=== PATIENT | female | born 1965 | race Caucasian/White ===

== ENCOUNTER → 2019-12-23 | Outpatient (CLI) | payer BC | END | disposition home or self-care (01) | LOC: LABWHC1 13:19 | PROVIDERS: ATTEND Emergency Medicine | DX: Z20.828 Contact with and (suspected) exposure to other viral communicable diseases (principal) | CPT/HCPCS: U0003; C9803 ==

== ENCOUNTER 2021-08-31 21:19 | Emergency (ER) | payer BC, OTHER ==
--- NOTE | 2021-08-31 22:59 | XR ---
EXAMINATION TYPE: XR chest 2V DATE OF EXAM: 08/31/2021 COMPARISON: 10/17/2016 HISTORY: Cough TECHNIQUE: FINDINGS: Heart and mediastinum are normal. Lungs are clear. There is normal. Bony thorax is intact. IMPRESSION: Normal chest. No change.
--- NOTE | 2021-09-01 00:10 | ED ---
Fever HPI - General Chief Complaint: Fever Stated Complaint: Fever,NORRIS Time Seen by Provider: 09/01/21 00:03 Source: patient Mode of arrival: ambulatory Limitations: no limitations - History of Present Illness Initial Comments: This is a pleasant 56-year-old female who is a daily cigarette smoker. Also has a history of hypertension, acid reflux, and osteoarthritis. It having a cough about 5 days ago. About 3 days ago she started having a fever and body aches. Patient denying any shortness of breath. No vomiting. Patient eating and dr inking normally. Normal amounts of urination. No abdominal pain. MILD headache and subjective fever., no changes in vision or hearing, no sore throat or difficulty with speech, no neck pain, no chest pain or shortness of breath, no abdominal pain, no nausea or vomiting, no changes in urination or bowel movements, no numbness or tingling, no extremity pain, no skin rashes or lesions. - Related Data Home Medications Medication Instructions Recorded Confirmed Albuterol Inhaler (Mhu) [Ventolin 1 - 2 puff INHALATION RT-Q6H PRN 08/30/16 10/03/17 Hfa Inhaler] Cholecalciferol [Vitamin D3] 5,000 unit PO DAILY 08/30/16 10/03/17 Escitalopram [Lexapro] 20 mg PO DAILY 08/30/16 10/03/17 Losartan [Cozaar] 50 mg PO DAILY 08/30/16 10/03/17 Multivitamins, Thera [Multivitamin 1 tab PO DAILY 08/30/16 10/03/17 (formulary)] Docusate [Colace] 100 mg PO DAILY 09/18/17 10/03/17 Ferrous Sulfate [Feosol] 325 mg PO MOWEFR 09/18/17 10/03/17 Previous Rx's Medication Instructions Recorded Docusate [Colace] 100 mg PO DAILY #10 capsule 10/03/17 HYDROcodone/APAP 5-325MG [[place] 1 tab PO Q6HR PRN 3 Days #12 tab 10/03/17 5-325] Allergies Allergy/AdvReac Type Severity Reaction Status Date / Time No Known Allergies Allergy Verified 08/31/21 22:34 Review of Systems ROS Statement: Those systems with pertinent positive or pertinent negative responses have been documented in the HPI. ROS Other: All systems not noted in ROS Statement are negative. Past Medical History Past Medical History: GERD/Reflux, Hypertension, Osteoarthritis (OA) Additional Past Medical History / Comment(s): gallstones History of Any Multi-Drug Resistant Organisms: None Reported Past Surgical History: Appendectomy, Breast Surgery Additional Past Surgical History / Comment(s): laparoscopy, rt breast biopsy Past Anesthesia/Blood Transfusion Reactions: Previous Problems w/ Anesthesia Additional Past Anesthesia/Blood Transfusion Reaction / Comment(s): during anesthesia low b/p, slow to wake up Past Psychological History: Anxiety, Depression Smoking Status: Current every day smoker Past Alcohol Use History: None Reported Past Drug Use History: None Reported - Past Family History Brother(s) Family Medical History: Deep Vein Thrombosis (DVT) Sister(s) Family Medical History: Cancer Additional Family Medical History / Comment(s): skin cancer General Exam - General Exam Comments Initial Comments: Obese 56-year-old female in no significant distress. Appears to be adequately hydrated. No respiratory distress. Appears to be minimally ill but not toxic. Adequate skin color. No mottling. Capillary refill less than 2 seconds. Limitations: no limitations General appearance: alert, in no apparent distress Head exam: Present: atraumatic, normocephalic, normal inspection Eye exam: Present: normal appearance, PERRL, EOMI. Absent: scleral icterus, conjunctival injection, periorbital swelling ENT exam: Present: normal exam, normal oropharynx, mucous membranes moist, TM's normal bilaterally, normal external ear exam, other (Airway is patent). Absent: mucous membranes dry Neck exam: Present: normal inspection, full ROM. Absent: tenderness, meningismus, lymphadenopathy Respiratory exam: Present: normal lung sounds bilaterally. Absent: respiratory distress, wheezes, rales, rhonchi, stridor Cardiovascular Exam: Present: regular rate, normal rhythm, normal heart sounds. Absent: systolic murmur, diastolic murmur, rubs, gallop, clicks GI/Abdominal exam: Present: soft, normal bowel sounds. Absent: distended, tenderness, guarding, rebound, rigid Extremities exam: Present: normal inspection, full ROM, normal capillary refill. Absent: tenderness, pedal edema, joint swelling, calf tenderness Back exam: Present: normal inspection Neurological exam: Present: alert, oriented X3, CN II-XII intact, normal gait Psychiatric exam: Present: normal affect, normal mood. Absent: anxious, flat affect Skin exam: Present: warm, dry, intact, normal color. Absent: rash, cyanosis, diaphoretic, erythema, urticaria, vesicles, petechiae, pallor, mottled, abrasion Course Vital Signs 08/31/21 22:31 Temperature 99.9 F H Pulse Rate 99 Respiratory 18 Rate Blood Pressure 147/73 O2 Sat by Pulse 95 Oximetry Medical Decision Making - Medical Decision Making Patient in no distress at discharge. Patient is outside the 48-hour window for Tamiflu. Patient positive for influenza A. Discussed conservative therapy to include antipyretics and hydration. All questions answered. Patient was told to return to the ER for any signs or symptoms worsen. Told to return immediately if any other problems arise. All questions answered. Treatment plan discussed. Patient in agreement Every effort has been made to ensure accuracy of this dictation. However, due to the limitations of electronic medical records and dictation devices, errors in charting still occur. Supervising physician is Dr. De Paz - Lab Data Lab Results 08/31/21 08/31/21 Range/Units 22:40 22:40 Coronavirus (PCR) Not Detected (Not Detectd) Influenza Type A RNA Detected H (Not Detectd) Influenza Type B (PCR) Not Detected (Not Detectd) - Radiology Data Radiology results: report reviewed, image reviewed Disposition Clinical Impression: Influenza A, Cigarette smoker Disposition: HOME SELF-CARE Condition: Stable Instructions (If sedation given, give patient instructions): How to Stop Smoking (ED), Fever in Adults (ED), Influenza (ED) Additional Instructions: Alternate acetaminophen and ibuprofen for fever control. Drink plenty of clear liquids. Follow-up with your regular physician as directed. Return to the ER immediately if any symptoms worsen, new symptoms arise, or any other problems develop. Is patient prescribed a controlled substance at d/c from ED?: No Referrals: Rolanda Huertas [Primary Care Provider] - 09/07/21 Time of Disposition: 00:10
[2021-09-01 00:27] VITALS: BP 127/78; PULSE 92; RESP 18; TEMP 98.9
== END 2021-09-01 00:25 | disposition home or self-care (01) ==
LOC: EC 21:19
DX: J10.1 Influenza due to other identified influenza virus with other respiratory manifestations (principal); F17.210 Nicotine dependence, cigarettes, uncomplicated; I10 Essential (primary) hypertension; Z20.822 Contact with and (suspected) exposure to COVID-19; Z79.899 Other long term (current) drug therapy
CPT/HCPCS: 71046; 87502; 87635; 99283

== ENCOUNTER → 2021-10-17 | Outpatient (CLI) | payer BC, OTHER ==
--- NOTE | 2021-10-17 15:30 | P.CNPUL ---
History of Present Illness Consult date: 10/17/21 Chief complaint: Hypersomnia History of present illness: This is a 56-year-old female patient was referred to me for sleep apnea evaluation. 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 She is working between 7 PM and 7 AM. She is typically home by 8:00 and she goes to bed at around 9 AM and she wakes up for 30 p.m. in the afternoon. She is snoring excessively and she's been told by several family members. She is excessively fatigued and non-refreshed and sleepy after she wakes up in the afternoon. She falls asleep easily. His sleep is restless and she moves and tosses and turns constantly and she feels that she is constantly moving her legs and she flips and flops all over her back. She has gained significant amount of weight over the years and she is up and her weight by around 15 pounds over the past 1 year. She drinks approximately 3 cups of coffee while on the job. She does not take any naps while on the job. However, she can take on and off naps during the day. No history of any motor vehicle accident because of feeling drowsy or sleepy. She has no sleep paralysis, hallucinations or cataplexy. She has a positive family history for sleep apnea as the patient's sister has been diagnosed having JOSE EDUARDO and the patient's sister has a CPAP unit. The patient's current [place] score is at 19. No nighttime chest pain or shortness of breath. No nighttime heartburn. She is missing her upper teeth. No facial deformity. She is a nosebleed appeared she wakes up with a dry mouth. She prefers to sleep on her side. Past medical history is positive for depression, hypertension, acid reflux, obesity, and diabetes mellitus Past surgical history includes breast biopsies, laparoscopic abdominal surgery, appendectomy, cholecystectomy, surgery on her left hand involving the left hand knuckle and carpal tunnel release in the left hand. Social history the patient is a nonsmoker. No tobacco rhythm. No sensory substance abuse. Family history is positive for hypertension, heart disease, hyperlipidemia and as mentioned earlier sister has obstructive sleep apnea. Diabetes runs in her family also addition to acid reflux. Review of Systems Constitutional: Reports daytime sleepiness, Reports fatigue, Reports weight gain Eyes: denies as per HPI, denies blurred vision, denies bulging eye, denies decreased vision, denies diplopia, denies discharge, denies dry eye, denies irritation, denies itching, denies pain, denies photophobia, denies loss of peripheral vision, denies loss of vision, denies tunnel vision/blind spots Ears: deny: decreased hearing, ear discharge, earache, tinnitus Ears, nose, mouth and throat: Reports as per HPI Breasts: absent: as per HPI, change in shape, gynecomastia, masses, nipple discharge, pain, skin changes, swelling Respiratory: Reports sleep apnea, Reports snoring Gastrointestinal: Reports as per HPI Genitourinary: Reports as per HPI Menstruation: Reports as per HPI Musculoskeletal: Reports as per HPI Musculoskeletal: absent: ankle pain, ankle stiffness, ankle swelling Integumentary: Reports as per HPI Neurological: Reports as per HPI Psychiatric: Reports as per HPI, Reports sleep disturbances Endocrine: Reports as per HPI, Reports fatigue Hematologic/Lymphatic: Reports as per HPI Allergic/Immunologic: Reports as per HPI Past Medical History Past Medical History: GERD/Reflux, Hypertension, Osteoarthritis (OA) Additional Past Medical History / Comment(s): gallstones History of Any Multi-Drug Resistant Organisms: None Reported Past Surgical History: Appendectomy, Breast Surgery Additional Past Surgical History / Comment(s): laparoscopy, rt breast biopsy Past Anesthesia/Blood Transfusion Reactions: Previous Problems w/ Anesthesia Additional Past Anesthesia/Blood Transfusion Reaction / Comment(s): during anesthesia low b/p, slow to wake up Past Psychological History: Anxiety, Depression Smoking Status: Current every day smoker Past Alcohol Use History: None Reported Past Drug Use History: None Reported - Past Family History Brother(s) Family Medical History: Deep Vein Thrombosis (DVT) Sister(s) Family Medical History: Cancer Additional Family Medical History / Comment(s): skin cancer Medications and Allergies Home Medications and Allergies Comment(s): Lexapro 20 mg by mouth daily Home Medications Medication Instructions Recorded Confirmed Type Albuterol Inhaler [Ventolin Hfa 1 - 2 puff INHALATION RT-Q6H PRN 08/30/16 10/03/17 History Inhaler] Cholecalciferol [Vitamin D3] 5,000 unit PO DAILY 08/30/16 10/03/17 History Escitalopram [Lexapro] 20 mg PO DAILY 08/30/16 10/03/17 History Losartan [Cozaar] 50 mg PO DAILY 08/30/16 10/03/17 History Multivitamins, Thera [Multivitamin 1 tab PO DAILY 08/30/16 10/03/17 History (formulary)] Docusate [Colace] 100 mg PO DAILY 09/18/17 10/03/17 History Ferrous Sulfate [Feosol] 325 mg PO MOWEFR 09/18/17 10/03/17 History Docusate [Colace] 100 mg PO DAILY #10 capsule 10/03/17 Rx HYDROcodone/APAP 5-325MG [[place] 1 tab PO Q6HR PRN 3 Days #12 tab 10/03/17 Rx 5-325] Allergies Allergy/AdvReac Type Severity Reaction Status Date / Time No Known Allergies Allergy Verified 08/31/21 22:34 Physical Exam BP is 135/83, pulse is 90, respirations 20, temperature is 97.5, and saturation 96% on room air. Height is 5 feet and 1 inch, weight 228 pounds, patient's [place] Evans scores of 19, neck is16 inches and the patient has a body mass index of 42.3. The patient appeared well nourished and normally developed. Vital signs as documented. Head exam is unremarkable. No scleral icterus or corneal arcus noted. Neck is without jugular venous distension, thyromegaly, or carotid bruits. The patient has a Mallampati class IV. She has missing upper teeth. No overbite. No nasal deformity. Carotid upstrokes are brisk bilaterally. Lungs are clear to auscultation and percussion. Cardiac exam reveals the PMI to be normally sized and situated. Rhythm is regular. First and second heart sounds normal. No murmurs, rubs or gallops. Abdominal exam reveals normal bowel sounds, no masses, no organomegaly and no aortic enlargement. Extremities are nonedematous and both femoral and pedal pulses are normal.Examination of the skin revealed no evidence of significant rashes, suspicious appearing nevi or other concerning lesions.Neurologically, the patient is awake and alert and the patient does not have any focal neurological deficit. Cranial nerves are essentially intact. Assessment and Plan Plan: Chronic hypersomnia under investigation. The [place] score at 19. 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 We'll ask the patient to proceed with a screening polysomnogram to rule out the possibility of an underlying sleep breathing disorder. Also rule out the possibility of periodic limb movement activity/RLS syndrome contributing to sleep fragmentation. Encourage weight loss we'll treat comorbidities through the primary care physician We'll contact the patient back with the results of the sleep study and make further decisions accordingly. Note that the patient denies she is worker and this will be a morning study.
== END ==
LOC: SLEEP 13:48
PROVIDERS: ATTEND Internal Medicine Critical Care Medicine
DX: G47.10 Hypersomnia, unspecified (principal); E66.9 Obesity, unspecified; Z68.41 Body mass index [BMI] 40.0-44.9, adult; R06.83 Snoring; I10 Essential (primary) hypertension; F32.A Depression, unspecified; K21.9 Gastro-esophageal reflux disease without esophagitis; E11.9 Type 2 diabetes mellitus without complications; M19.90 Unspecified osteoarthritis, unspecified site; F17.200 Nicotine dependence, unspecified, uncomplicated; Z79.899 Other long term (current) drug therapy
CPT/HCPCS: 99211

== ENCOUNTER 2022-02-27 17:45 | Emergency (ER) | payer BC, OTHER ==
[2022-02-27 18:23] VITALS: BP 147/91; TEMP 98.5
--- NOTE | 2022-02-27 19:11 | XR ---
EXAMINATION TYPE: XR chest 2V DATE OF EXAM: 02/27/2022 6:42 PM COMPARISON: Chest radiographs from 08/31/2021 TECHNIQUE: XR chest 2V Frontal and lateral views of the chest. CLINICAL INDICATION:Female, 56 years old with history of cough; FINDINGS: Lungs/Pleura: There is no evidence of pleural effusion, focal consolidation, or pneumothorax. Pulmonary vascularity: Unremarkable. Heart/mediastinum: Cardiomediastinal silhouette is unremarkable. Musculoskeletal: No acute osseous pathology. IMPRESSION: No acute cardiopulmonary disease/process. No change from prior on 08/31/2021.
[2022-02-27] MEDS ORDERED: IPRATROPIUM-ALBUTEROL 3 ML NEB INHALATION STA (19:45)
[2022-02-27] MEDS ORDERED: methylPREDNISolone SOD SUCCI 125 MG/2 ML VIAL IM ONE (19:46)
--- NOTE | 2022-02-27 19:49 | ED ---
General Adult HPI - General Chief complaint: Shortness of Breath Stated complaint: SOB Time Seen by Provider: 02/27/22 19:40 Source: patient, RN notes reviewed, old records reviewed Mode of arrival: ambulatory Limitations: no limitations - History of Present Illness Initial comments: This is a 56-year-old female with past medical history significant for smoking. Patient states she continues to smoke. Patient did receive the COVID vaccine however she was diagnosed with colon on February 17 she was on Paxlovid but she stopped it because he was given or diarrhea. Patient states she continues to smoke have some shortness of breath. Patient saw her family doctor yesterday and was prescribed albuterol and prednisone. Patient states she's been unable to take the albuterol because she does not a work inhaler. Patient states shortness of breath and cough continues and she came to the emergency department. This problem is the dry cough. Patient denies any chest pain denies any palpitation. Patient denies any fever chills. Patient denies any abdominal pain. - Related Data Home Medications Medication Instructions Recorded Confirmed Albuterol Inhaler [Ventolin Hfa 1 - 2 puff INHALATION RT-Q6H PRN 08/30/16 10/03/17 Inhaler] Cholecalciferol [Vitamin D3] 5,000 unit PO DAILY 08/30/16 10/03/17 Escitalopram [Lexapro] 20 mg PO DAILY 08/30/16 10/03/17 Losartan [Cozaar] 50 mg PO DAILY 08/30/16 10/03/17 Multivitamins, Thera [Multivitamin 1 tab PO DAILY 08/30/16 10/03/17 (formulary)] Docusate [Colace] 100 mg PO DAILY 09/18/17 10/03/17 Ferrous Sulfate [Feosol] 325 mg PO MOWEFR 09/18/17 10/03/17 Previous Rx's Medication Instructions Recorded Docusate [Colace] 100 mg PO DAILY #10 capsule 10/03/17 HYDROcodone/APAP 5-325MG [[place] 1 tab PO Q6HR PRN 3 Days #12 tab 10/03/17 5-325] Allergies Allergy/AdvReac Type Severity Reaction Status Date / Time No Known Allergies Allergy Verified 02/27/22 18:23 Review of Systems ROS Statement: Those systems with pertinent positive or pertinent negative responses have been documented in the HPI. ROS Other: All systems not noted in ROS Statement are negative. Past Medical History Past Medical History: GERD/Reflux, Hypertension, Osteoarthritis (OA) Additional Past Medical History / Comment(s): gallstones History of Any Multi-Drug Resistant Organisms: None Reported Past Surgical History: Appendectomy, Breast Surgery Additional Past Surgical History / Comment(s): laparoscopy, rt breast biopsy Past Anesthesia/Blood Transfusion Reactions: Previous Problems w/ Anesthesia Additional Past Anesthesia/Blood Transfusion Reaction / Comment(s): during anesthesia low b/p, slow to wake up Past Psychological History: Anxiety, Depression Smoking Status: Current every day smoker Past Alcohol Use History: None Reported Past Drug Use History: None Reported - Past Family History Brother(s) Family Medical History: Deep Vein Thrombosis (DVT) Sister(s) Family Medical History: Cancer Additional Family Medical History / Comment(s): skin cancer General Exam - General Exam Comments Initial Comments: GENERAL: Patient is well-developed and well-nourished. Patient is nontoxic and well- hydrated and is in no acute distress. Patient is talking full sentences and though I can hear some wheezing on auscultation she does not appear to be any respiratory distress ENT: Neck is soft and supple. No significant lymphadenopathy is noted. Oropharynx is clear. Moist mucous membranes. Neck has full range of motion without eliciting any pain. EYES: The sclera were anicteric and conjunctiva were pink and moist. Extraocular movements were intact and pupils were equal round and reactive to light. Eyelids were unremarkable. PULMONARY: Patient has expiratory wheezing in the bases bilaterally CARDIOVASCULAR: There is a regular rate and rhythm without any murmurs gallops or rubs. ABDOMEN: Soft and nontender with normal bowel sounds. SKIN: Skin is clear with no lesions or rashes and otherwise unremarkable. NEUROLOGIC: Patient is alert and oriented x3. Cranial nerves II through XII are grossly intact. Motor and sensory are also intact. Normal speech, volume and content. Symmetrical smile. MUSCULOSKELETAL: Normal extremities with adequate strength and full range of motion. No lower extremity swelling or edema. No calf tenderness. LYMPHATICS: No significant lymphadenopathy is noted PSYCHIATRIC: Normal psychiatric evaluation. Limitations: no limitations Course Vital Signs 02/27/22 02/27/22 02/27/22 18:20 19:56 19:58 Temperature 98.5 F Pulse Rate 98 96 Respiratory 22 18 Rate Blood Pressure 147/91 O2 Sat by Pulse 95 Oximetry 02/27/22 20:07 Temperature Pulse Rate 100 Respiratory Rate Blood Pressure O2 Sat by Pulse Oximetry Medical Decision Making - Medical Decision Making X-ray was interpreted by me. Chest x-ray shows no acute abnormality. There is no infiltrate. Patient received albuterol Atrovent treatment felt considerably better. Patient ambulated around the ER and then had a pulse ox checked was 95% and she felt as though her shortness of breath was much improved. Patient also received Solu- Medrol. I went back in and reevaluated the patient she was feeling considerably better and wanted to go home and try her inhaler with a spacer. Patient is to resume from her primary medical care doctor. Patient has been instructed to return for his any fevers or any worsening difficulty breathing. Disposition Clinical Impression: COPD exacerbation Disposition: HOME SELF-CARE Condition: Good Instructions (If sedation given, give patient instructions): COPD (Chronic Obstructive Pulmonary Disease) (ED) Additional Instructions: Patient is already given a albuterol inhaler and now she has a spacer so she can use it properly. Patient was also given steroids at home as well. Patient should use both of these as prescribed. Patient should return to emergency department there is any worsening difficulty breathing or any fever. Is patient prescribed a controlled substance at d/c from ED?: No Referrals: Rolanda Huertas [Primary Care Provider] - 1-2 days Time of Disposition: 20:52
[2022-02-27 20:01] VITALS: RESP 18
[2022-02-27 20:20] VITALS: PULSE 100
== END 2022-02-27 21:03 | disposition home or self-care (01) ==
LOC: EC 17:45
DX: J44.1 Chronic obstructive pulmonary disease with (acute) exacerbation (principal); K21.9 Gastro-esophageal reflux disease without esophagitis; I10 Essential (primary) hypertension; M19.90 Unspecified osteoarthritis, unspecified site; F41.9 Anxiety disorder, unspecified; F32.A Depression, unspecified; F17.200 Nicotine dependence, unspecified, uncomplicated; Z79.51 Long term (current) use of inhaled steroids; Z79.899 Other long term (current) drug therapy
CPT/HCPCS: 94640; 71046; 99284; 96372; J2930

== ENCOUNTER 2022-12-28 19:01 | Observation (INO) | payer BC, OTHER ==
[2022-12-28] MEDS ORDERED: ASPIRIN 81 MG PO STA (19:27)
[2022-12-28] MEDS ORDERED: MECLIZINE 12.5 MG TAB PO STA (19:27)
[2022-12-28] MEDS ORDERED: SODIUM CHLORIDE 0.9% 500 ML 500 ML IV STA (19:27)
[2022-12-28 19:47] LABS: Basophils # (A) 0.1 k/uL (0-0.2); Basophils % (A) 0 %; Eosinophils # (A) 0.3 k/uL (0-0.7); Eosinophils % (A) 2 %; HCT 43.6 % (34.0-46.0); HGB 14.3 gm/dL (11.4-16.0); Lymphocytes # (A) 3.4 k/uL (1.0-4.8); Lymphocytes % (A) 22 %; MCH 29.5 pg (25.0-35.0); MCHC 32.7 g/dL (31.0-37.0); MCV 90.2 fL (80.0-100.0); Mean Platelet Volume 7.1; Monocytes # (A) 0.6 k/uL (0-1.0); Monocytes % (A) 4 %; Neutrophils # (A) 11.2 k/uL (1.3-7.7); Neutrophils % (A) 72 %; Platelet Count 432 k/uL (150-450); RBC 4.84 m/uL (3.80-5.40); RDW 13.6 % (11.5-15.5); WBC 15.5 k/uL (3.8-10.6)
[2022-12-28 20:02] LABS: ALT 19 U/L (4-34); AST 18 U/L (14-36); African American GFR (CKD) >90 (>60 ml/min/1.73 sqM); Albumin 3.9 g/dL (3.5-5.0); Alkaline Phosphatase 83 U/L (38-126); Anion Gap 7 mmol/L; Blood Urea Nitrogen 10 mg/dL (7-17); Carbon Dioxide 23 mmol/L (22-30); Chloride 107 mmol/L (98-107); Glucose 128 mg/dL (74-99); INR 0.9 (<1.2); Non-African American GFR(CKD) >90 (>60 ml/min/1.73 sqM); Partial Thromboplastin Time 26.3 sec (22.0-30.0); Potassium 4.3 mmol/L (3.5-5.1); Prothrombin Time 9.8 sec (9.0-12.0); Sodium 137 mmol/L (137-145); Total Bilirubin 0.4 mg/dL (0.2-1.3); Total Protein 7.1 g/dL (6.3-8.2)
--- NOTE | 2022-12-28 20:18 | ED ---
Chest Pain HPI - General Chief Complaint: Chest Pain Stated Complaint: Chest heaviness,dizziness Time Seen by Provider: 12/28/22 19:21 Source: patient Mode of arrival: ambulatory Limitations: no limitations - History of Present Illness Initial Comments: 57-year-old female presenting with chief complaint of chest pain. Patient states that last night she had a brief episode of pressure-like chest pain and shortness of breath. States that today she had a repeat episode which prompted her to report to the ER. She admits to lightheadedness and diarrhea as well. No cough or other URI like symptoms. No fevers. No nausea or vomiting. No hematochezia or melena. No palpitations. No vision or hearing changes. - Related Data Home Medications Medication Instructions Recorded Confirmed Cholecalciferol [Vitamin D3] 50 mcg PO DAILY 08/30/16 12/28/22 Escitalopram [Lexapro] 20 mg PO DAILY 08/30/16 12/28/22 Losartan [Cozaar] 50 mg PO DAILY 08/30/16 12/28/22 Docusate [Colace] 100 mg PO DAILY PRN 12/28/22 12/28/22 Montelukast [Singulair] 10 mg PO DAILY 12/28/22 12/28/22 Omeprazole Magnesium [PriLOSEC OTC] 20 mg PO DAILY 12/28/22 12/28/22 Semaglutide [Ozempic] 0.5 mg SQ TH 12/28/22 12/28/22 Sulfamethox-Tmp 800-160Mg [Bactrim 1 tab PO DIRECTED 12/28/22 12/28/22 DS 800-160 mg] Allergies Allergy/AdvReac Type Severity Reaction Status Date / Time No Known Allergies Allergy Verified 12/28/22 21:05 Review of Systems ROS Statement: Those systems with pertinent positive or pertinent negative responses have been documented in the HPI. ROS Other: All systems not noted in ROS Statement are negative. EKG Findings - EKG Comments: EKG Findings:: Sinus rhythm ventricular rate 87. MT interval 161. QRS 91. QT 363. QTC 408. Normal axis. Past Medical History Past Medical History: GERD/Reflux, Hypertension, Osteoarthritis (OA) Additional Past Medical History / Comment(s): gallstones History of Any Multi-Drug Resistant Organisms: None Reported Past Surgical History: Appendectomy, Breast Surgery Additional Past Surgical History / Comment(s): laparoscopy, rt breast biopsy Past Anesthesia/Blood Transfusion Reactions: Previous Problems w/ Anesthesia Additional Past Anesthesia/Blood Transfusion Reaction / Comment(s): during anesthesia low b/p, slow to wake up Past Psychological History: Anxiety, Depression Smoking Status: Current every day smoker Past Alcohol Use History: None Reported Past Drug Use History: None Reported - Past Family History Brother(s) Family Medical History: Deep Vein Thrombosis (DVT) Sister(s) Family Medical History: Cancer Additional Family Medical History / Comment(s): skin cancer General Exam Limitations: no limitations General appearance: alert, in no apparent distress Head exam: Present: atraumatic, normocephalic, normal inspection Eye exam: Present: normal appearance, EOMI. Absent: scleral icterus, periorbital swelling Neck exam: Present: normal inspection, full ROM Respiratory exam: Present: normal lung sounds bilaterally. Absent: respiratory distress, wheezes, rales, rhonchi, stridor Cardiovascular Exam: Present: regular rate, normal rhythm, normal heart sounds. Absent: systolic murmur, diastolic murmur, rubs, gallop, clicks Neurological exam: Present: alert, oriented X3, CN II-XII intact Psychiatric exam: Present: normal affect, normal mood Skin exam: Present: warm, dry, intact, normal color. Absent: rash Course Vital Signs 12/28/22 12/28/22 19:14 21:54 Temperature 98.6 F Pulse Rate 89 82 Respiratory 20 18 Rate Blood Pressure 136/78 143/77 O2 Sat by Pulse 97 96 Oximetry Chest Pain MDM - MDM Was pt. sent in by a medical professional or institution (, PA, BUSINESS PROFESSOR, urgent care, hospital, or [facility]...) When possible be specific @ -No Did you speak to anyone other than the patient for history (EMS, parent, family, police, friend...)? What history was obtained from this source @ -No Did you review nursing and triage notes (agree or disagree)? Why? @ -I reviewed and agree with nursing and triage notes Were old charts reviewed (outside hosp., previous admission, EMS record, old EKG, old radiological studies, urgent care reports/EKG's, [facility] records)? Report findings @ -No old charts were reviewed Differential Diagnosis (chest pain, altered mental status, abdominal pain women, abdominal pain men, vaginal bleeding, weakness, fever, dyspnea, syncope, headache, dizziness, GI bleed, back pain, seizure, CVA, palpatations, mental health, musculoskeletal)? @ -[facility] Differential Chest Pain: Stable Angina, Unstable Angina, STEMI, NSTEMI Aortic Dissection, Pneumothorax, Musculoskeletal, Esophageal Spasm GERD, Cholecystitis, Pancreatitis, Zoster This is not meant to be an all-inclusive list. EKG interpreted by me (3pts min.). @ -As above X-rays interpreted by me (1pt min.). @ -Chest x-ray negative for acute process CT interpreted by me (1pt min.). @ -None done U/S interpreted by me (1pt. min.). @ -None done What testing was considered but not performed or refused? (CT, X-rays, U/S, labs)? Why? @ -None What meds were considered but not given or refused? Why? @ -None Did you discuss the management of the patient with other professionals (professionals i.e. , PA, BUSINESS PROFESSOR, lab, RT, psych nurse, child protective services social worker, truck driver flatbed, teacher, loan workout officer, case repairer)? Give summary @ -I spoke with Dr. Gandhi who accepted admission Was smoking cessation discussed for >3mins.? @ -No Was critical care preformed (if so, how long)? @ -No Were there social determinants of health that impacted care today? How? (Homelessness, low income, unemployed, alcoholism, drug addiction, transportation, low edu. Level, literacy, decrease access to med. care, fdc, rehab)? @ -No Was there de-escalation of care discussed even if they declined (Discuss DNR or withdrawal of care, Hospice)? DNR status @ -No What co-morbidities impacted this encounter? (DM, HTN, Smoking, COPD, CAD, Cancer, CVA, ARF, Chemo, Hep., AIDS, mental health diagnosis, sleep apnea, morbid obesity)? @ -Hypertension Was patient admitted / discharged? Hospital course, mention meds given and route, prescriptions, significant lab abnormalities, going to OR and other pertinent info. @ -57-year-old female presenting with chief complaint of chest pain. Chest pain has been intermittent and accompanied by shortness of breath. Physical examination is conducted. WBC 15.5. Negative troponin. EKG shows no ischemic changes and chest x-rays negative for acute process. D-dimer is added on. Patient will be admitted for observation and evaluation by cardiology. She agrees with this plan. Spoke with Dr. Gandhi who accepts admission. I discussed this case with my attending Dr. Rousseau. Undiagnosed new problem with uncertain prognosis? @ -No Drug Therapy requiring intensive monitoring for toxicity (Heparin, Nitro, Insulin, Cardizem)? @ -No Were any procedures done? @ -No Diagnosis/symptom? @ -Chest pain Acute, or Chronic, or Acute on Chronic? @ Acute Uncomplicated (without systemic symptoms) or Complicated (systemic symptoms)? @ -Complicated Side effects of treatment? @ -No Exacerbation, Progression, or Severe Exacerbation? @ -No Poses a threat to life or bodily function? How? (Chest pain, [place], [place], pneumonia, PE, COPD, DKA, ARF, appy, cholecystitis, CVA, Diverticulitis, Homicidal, Suicidal, threat to staff... and all critical care pts) @ -No Disposition Clinical Impression: Chest pain Disposition: ADMITTED IP TO THIS HOSP Condition: Fair Time of Disposition: 21:07
--- NOTE | 2022-12-28 20:19 | XR ---
EXAMINATION TYPE: XR chest 2V DATE OF EXAM: 12/28/2022 8:10 PM COMPARISON: Chest radiographs from 02/27/2022 TECHNIQUE: XR chest 2V Frontal and lateral views of the chest. CLINICAL INDICATION:Female, 57 years old with history of Chest Pain; FINDINGS: Lungs/Pleura: Prominent interstitial lung markings are seen scattered throughout the lungs. No eviden ce of focal consolidation, pneumothorax or pleural effusion. Pulmonary vascularity: Unremarkable. Heart/mediastinum: Cardiomediastinal silhouette is unremarkable. Musculoskeletal: No acute osseous pathology. IMPRESSION: Chronic changes without acute pulmonary process. No significant change from prior.
[2022-12-28] MEDS ORDERED: NALOXONE 0.4 MG/ML 1 ML VIAL IV PRN (21:03)
[2022-12-28] MEDS ORDERED: ACETAMINOPHEN TAB 325 MG TAB PO PRN (21:03)
[2022-12-28] MEDS: SODIUM CHLORIDE 0.9% 1,000 ML IV SCH (21:12)
[2022-12-29 06:53] VITALS: RESP 18
--- NOTE | 2022-12-29 10:15 | P.CRDCN ---
History of Present Illness Consult date: 12/29/22 Requesting physician: Simba Gandhi Reason for Consult (text): Chest pain Chief complaint: Chest heaviness, lightheadedness, diarrhea History of present illness: This is a pleasant 57-year-old female patient who does not follow with a organic search lead. She has a history of hypertension, diabetes, and smoking one pack per day. Presented to the hospital with complaints of chest heaviness across her whole chest but more so on the right side with shortness of breath and lightheadedness. She was also having diarrhea throughout the day yesterday. Chest heaviness occurred twice and has resolved since admission. Cardiac enzymes were negative 3 and EKG was unremarkable. White blood cell count is elevated and according to the patient this is normal for her. Chest x-ray showed chronic changes without acute pulmonary process, no significant change from prior. Vital signs have been stable and she's been afebrile. She denies further complaints of chest heaviness. She denies shortness of breath. She does have mild dyspnea on exertion that is unstable. She denies any orthopnea, PND or edema. She did have some nausea yesterday but that has resolved. She has had no palpitations or syncope. She does have chronic abdominal discomfort and is following with elevator operator out of town. Past Medical History Past Medical History: Diabetes Mellitus, GERD/Reflux, Hypertension, Osteoarthritis (OA) Additional Past Medical History / Comment(s): gallstones History of Any Multi-Drug Resistant Organisms: None Reported Past Surgical History: Appendectomy, Breast Surgery, Cholecystectomy Additional Past Surgical History / Comment(s): laparoscopy, bilat breast biopsy Past Anesthesia/Blood Transfusion Reactions: Previous Problems w/ Anesthesia Additional Past Anesthesia/Blood Transfusion Reaction / Comment(s): during anesthesia low b/p, slow to wake up Past Psychological History: Anxiety, Depression Smoking Status: Current every day smoker Past Alcohol Use History: None Reported Additional Past Alcohol Use History / Comment(s): smoker 32 years 1ppd Past Drug Use History: None Reported - Past Family History Brother(s) Family Medical History: Deep Vein Thrombosis (DVT) Sister(s) Family Medical History: Cancer Additional Family Medical History / Comment(s): skin cancer Medications and Allergies Home Medications Medication Instructions Recorded Confirmed Type Cholecalciferol [Vitamin D3] 50 mcg PO DAILY 08/30/16 12/28/22 History Escitalopram [Lexapro] 20 mg PO DAILY 08/30/16 12/28/22 History Losartan [Cozaar] 50 mg PO DAILY 08/30/16 12/28/22 History Docusate [Colace] 100 mg PO DAILY PRN 12/28/22 12/28/22 History Montelukast [Singulair] 10 mg PO DAILY 12/28/22 12/28/22 History Omeprazole Magnesium [PriLOSEC OTC] 20 mg PO DAILY 12/28/22 12/28/22 History Semaglutide [Ozempic] 0.5 mg SQ TH 12/28/22 12/28/22 History Sulfamethox-Tmp 800-160Mg [Bactrim 1 tab PO DIRECTED 12/28/22 12/28/22 History DS 800-160 mg] Allergies Allergy/AdvReac Type Severity Reaction Status Date / Time No Known Allergies Allergy Verified 12/28/22 21:05 Physical Exam Vitals: Vital Signs Temp Pulse Pulse Resp BP BP Pulse Ox 12/29/22 08:00 74 18 12/29/22 07:58 98.3 F 74 116/72 96 12/29/22 02:00 98.3 F 77 18 118/79 95 12/28/22 22:08 98.2 F 77 16 170/79 96 12/28/22 21:54 82 18 143/77 96 12/28/22 19:14 98.6 F 89 20 136/78 97 Intake and Output 12/28/22 12/29/22 12/29/22 22:59 06:59 14:59 Intake Total 600 Balance 600 Intake: Intake, IV Titration 600 Amount Sodium Chloride 0.9% 1, 600 000 ml @ 75 mls/hr IV . [id number] [facility] Rx#:[id number] Other: Voiding Method Toilet # Voids 2 Weight 96.615 kg 96.615 kg PHYSICAL EXAMINATION: This is a 57-year-old female in no apparent distress at the time of my examination. HEENT: Head is atraumatic, normocephalic. Pupils are equal, round. Sclerae anicteric. Conjunctivae are clear. Mucous membranes of the mouth are moist. Neck is supple. There is no elevated jugular venous pressure. No carotid bruit is heard. CHEST EXAMINATION: Clear to auscultation bilaterally. No wheezes rales or rhonchi. Respirations even and nonlabored. HEART EXAMINATION: Heart regular, positive S1 and S2. No S3. No S4. No clicks, rubs or murmurs. ABDOMEN: Soft, mild tenderness to palpation. Bowel sounds are heard. No organomegaly noted. EXTREMITIES: 2+ peripheral pulses with no evidence of peripheral edema and no calf tenderness noted. NEUROLOGIC EXAMINATION: Patient is awake, alert and oriented x3. Results 12/28/22 19:39 12/28/22 19:39 Cardiac Enzymes 12/28/22 12/28/22 12/28/22 Range/Units 19:39 19:39 23:31 AST 18 (14-36) U/L Troponin I <0.012 <0.012 (0.000-0.034) ng/mL 12/29/22 Range/Units 03:51 AST (14-36) U/L Troponin I <0.012 (0.000-0.034) ng/mL Coagulation 12/28/22 Range/Units 19:39 PT 9.8 (9.0-12.0) sec APTT 26.3 (22.0-30.0) sec CBC 12/28/22 Range/Units 19:39 WBC 15.5 H (3.8-10.6) k/uL RBC 4.84 (3.80-5.40) m/uL Hgb 14.3 (11.4-16.0) gm/dL Hct 43.6 (34.0-46.0) % Plt Count 432 (150-450) k/uL Comprehensive Metabolic Panel 12/28/22 Range/Units 19:39 Sodium 137 (137-145) mmol/L Potassium 4.3 (3.5-5.1) mmol/L Chloride 107 (98-107) mmol/L Carbon Dioxide 23 (22-30) mmol/L BUN 10 (7-17) mg/dL Creatinine 0.57 (0.52-1.04) mg/dL Glucose 128 H (74-99) mg/dL Calcium 9.0 (8.4-10.2) mg/dL AST 18 (14-36) U/L ALT 19 (4-34) U/L Alkaline Phosphatase 83 (38-126) U/L Total Protein 7.1 (6.3-8.2) g/dL Albumin 3.9 (3.5-5.0) g/dL Current Medications Generic Name Dose Route Start Last Admin Trade Name Freq PRN Reason Stop Dose Admin Acetaminophen 650 mg 12/28/22 21:03 Acetaminophen Tab 325 Mg Tab PO Q6HR PRN Mild Pain or Fever > 100.5 Sodium Chloride 1,000 mls @ 75 mls/hr 12/28/22 21:15 12/28/22 21:12 Saline 0.9% IV 75 mls/hr .[id number] PRASAD Administration Naloxone HCl 0.2 mg 12/28/22 21:03 Naloxone 0.4 Mg/Ml 1 Ml Vial IV Q2M PRN Opioid Reversal Intake and Output 12/28/22 12/29/22 12/29/22 22:59 06:59 14:59 Intake Total 600 Balance 600 Intake: Intake, IV Titration 600 Amount Sodium Chloride 0.9% 1, 600 000 ml @ 75 mls/hr IV . [id number] [facility] Rx#:[id number] Other: Voiding Method Toilet # Voids 2 Weight 96.615 kg 96.615 kg 12/28/22 19:39 12/28/22 19:39 EKG Interpretations (text) Sinus rhythm Assessment and Plan Assessment: #1 chest heaviness, acute coronary event has been ruled out, troponins negative 3 and EKG unremarkable. #2 hypertension #3 nicotine dependence #4 history of GERD Plan: From cardiology's perspective and acute coronary event has been ruled out. Medications were reviewed and we will continue the same home medications. We wi ll obtain a 2-D echo with Doppler study to assess cardiac structure and function and if this shows no significant abnormalities and she has no further symptoms she may be discharged home from our standpoint and follow-up as an outpatient for further cardiac workup. BAKERY ASSOCIATE note has been reviewed, I agree with a documented findings and plan of care. Patient was seen and examined.
[2022-12-29] MEDS ORDERED: LOSARTAN 50 MG TAB PO SCH (10:30)
[2022-12-29] MEDS: SODIUM CHLORIDE 0.9% 1,000 ML IV SCH (11:04)
[2022-12-29 14:04] VITALS: BP 133/77; PULSE 79; TEMP 98.5
--- NOTE | 2022-12-29 14:42 | CA ---
Transthoracic Echo Report Name: Kamilla Pompa Age: 57 Gender: F : 1965 Exam Date: 12/29/2022 10:25 Exam Location: [facility] Ht (in): 61 Wt (lb): 213 Ordering Physician: Khadra Kaur Attending/Referring Phys: [id number], Natasha Privacy Specialist Belia Gomez RDCS Procedure CPT: Indications: Chest Pain Cardiac Hx: Technical Quality: Fair Contrast 1: Total Dose (mL): Contrast 2: Total Dose (mL): MEASUREMENTS (Male / Female) Normal Values 2D ECHO LV Diastolic Diameter PLAX 3.8 cm 4.2 - 5.9 / 3.9 - 5.3 cm LV Systolic Diameter PLAX 2.5 cm IVS Diastolic Thickness 1.7 cm 0.6 - 1.0 / 0.6 - 0.9 cm LVPW Diastolic Thickness 1.4 cm 0.6 - 1.0 / 0.6 - 0.9 cm LV Relative Wall Thickness 0.8 RV Internal Dim ED PLAX 3.4 cm LA Volume 39.6 cm??? 18 - 58 / 22 - 52 cm??? M-MODE Aortic Root Diameter MM 3.5 cm LA Systolic Diameter MM 3.8 cm LA Ao Ratio MM 1.1 AV Cusp Separation MM 2.1 cm DOPPLER AV Peak Velocity 134.7 cm/s AV Peak Gradient 7.3 mmHg AV Mean Velocity 96.6 cm/s AV Mean Gradient 4.1 mmHg AV Velocity Time Integral 29.1 cm LVOT Peak Velocity 114.5 cm/s LVOT Peak Gradient 5.2 mmHg LVOT Velocity Time Integral 23.6 cm MV Area PHT 3.6 cm??? Mitral E Point Velocity 93.9 cm/s Mitral A Point Velocity 80.7 cm/s Mitral E to A Ratio 1.2 MV Deceleration Time 210.8 ms MV E' Velocity 7.9 cm/s Mitral E to MV E' Ratio 11.9 FINDINGS Left Ventricle Moderately increased left ventricular wall thickness. Left ventricular cavity size normal. Normal left ventricular systolic function with no obvious regional wall motion abnormalities. Left ventricular ejection fraction is estimated at 55-60 %. Right Ventricle Mild right ventricular dilatation. Right ventricular systolic pressure within normal limits. Right Atrium Normal right atrial size. Left Atrium Normal left atrial size. Mitral Valve Structurally normal mitral valve. Mild mitral annular calcification. Trace mitral regurgitation. Aortic Valve No aortic valve stenosis or regurgitation. Aortic valve sclerosis. Tricuspid Valve Structurally normal tricuspid valve. Mild tricuspid regurgitation. Pulmonic Valve Trace pulmonic regurgitation. Pericardium No pericardial effusion. Echo free space anterior to the right ventricle likely represents a fat pad. Aorta Normal size aortic root and proximal ascending aorta. CONCLUSIONS 1. Normal left ventricular size and systolic function 2. Trace mitral with mild tricuspid regurgitation Previewed by: Dr. Mary Fajardo MD (Electronically Signed) Final Date: 29 December 2022 14:41
[2022-12-29 23:24] LABS: Chol/HDL Ratio 5.12 Ratio; LDL Cholesterol,Calculated 120.6 mg/dL (0.0-131.0)
[2022-12-30] MEDS ORDERED: ASPIRIN 81 MG PO SCH (09:00)
--- NOTE | 2022-12-30 10:30 | P.HPIM ---
History of Present Illness H&P Date: 12/29/22 Chief Complaint: Chest pain 57-year-old female presenting with chief complaint of chest pain. Patient states that last night she had a brief episode of pressure-like chest pain and shortness of breath. States that today she had a repeat episode which prompted her to report to the ER. She admits to lightheadedness and diarrhea as well. No cough or other URI like symptoms. No fevers. No nausea or vomiting. No hematochezia or melena. No palpitations. No vision or hearing changes. Cardiac enzymes were negative 3 and EKG was unremarkable. White blood cell count is elevated and according to the patient this is normal for her. Chest x- ray showed chronic changes without acute pulmonary process, no significant change from prior. Review of Systems REVIEW OF SYSTEMS: CONSTITUTIONAL: No fever, no malaise, no fatigue. HEENT: No recent visual problems or hearing problems. Denied any sore throat. CARDIOVASCULAR: No chest pain, orthopnea, PND, no palpitations, no syncope. PULMONARY: No shortness of breath, no cough, no hemoptysis. GASTROINTESTINAL: No diarrhea, no nausea, no vomiting, no abdominal pain. NEUROLOGICAL: No headaches, no weakness, no numbness. HEMATOLOGICAL: Denies any bleeding or petechiae. GENITOURINARY: Denies any burning micturition, frequency, or urgency. MUSCULOSKELETAL/RHEUMATOLOGICAL: Denies any joint pain, swelling, or any muscle pain. ENDOCRINE: Denies any polyuria or polydipsia. The rest of the 14-point review of systems is negative. Past Medical History Past Medical History: Diabetes Mellitus, GERD/Reflux, Hypertension, Osteoarthritis (OA) Additional Past Medical History / Comment(s): gallstones History of Any Multi-Drug Resistant Organisms: None Reported Past Surgical History: Appendectomy, Breast Surgery, Cholecystectomy Additional Past Surgical History / Comment(s): laparoscopy, bilat breast biopsy Past Anesthesia/Blood Transfusion Reactions: Previous Problems w/ Anesthesia Additional Past Anesthesia/Blood Transfusion Reaction / Comment(s): during ane sthesia low b/p, slow to wake up Past Psychological History: Anxiety, Depression Smoking Status: Current every day smoker Past Alcohol Use History: None Reported Additional Past Alcohol Use History / Comment(s): smoker 32 years 1ppd Past Drug Use History: None Reported - Past Family History Brother(s) Family Medical History: Deep Vein Thrombosis (DVT) Sister(s) Family Medical History: Cancer Additional Family Medical History / Comment(s): skin cancer Medications and Allergies Home Medications Medication Instructions Recorded Confirmed Type Cholecalciferol [Vitamin D3 (25 50 mcg PO DAILY 08/30/16 12/28/22 History Mcg = 1000 Iu)] Escitalopram [Lexapro] 20 mg PO DAILY 08/30/16 12/28/22 History Losartan [Cozaar] 50 mg PO DAILY 08/30/16 12/28/22 History Docusate [Colace] 100 mg PO DAILY PRN 12/28/22 12/28/22 History Montelukast [Singulair] 10 mg PO DAILY 12/28/22 12/28/22 History Omeprazole Magnesium [PriLOSEC OTC] 20 mg PO DAILY 12/28/22 12/28/22 History Semaglutide [Ozempic] 0.5 mg SQ TH 12/28/22 12/28/22 History Sulfamethox-Tmp 800-160Mg [Bactrim 1 tab PO DIRECTED 12/28/22 12/28/22 History DS 800-160 mg] Aspirin 81 mg PO DAILY tab 12/29/22 Rx Allergies Allergy/AdvReac Type Severity Reaction Status Date / Time No Known Allergies Allergy Verified 12/28/22 21:05 Physical Exam Vitals: Vital Signs Temp Pulse Pulse Resp BP BP Pulse Ox 12/29/22 14:00 79 18 12/29/22 13:25 98.5 F 79 133/77 96 12/29/22 08:00 74 18 12/29/22 07:58 98.3 F 74 116/72 96 12/29/22 02:00 98.3 F 77 18 118/79 95 12/28/22 22:08 98.2 F 77 16 170/79 96 12/28/22 21:54 82 18 143/77 96 12/28/22 19:14 98.6 F 89 20 136/78 97 Intake and Output 12/28/22 12/29/22 12/29/22 22:59 06:59 14:59 Intake Total 600 118 Balance 600 118 Intake: Intake, IV Titration 600 Amount Sodium Chloride 0.9% 1, 600 000 ml @ 75 mls/hr IV . [id number] [facility] Rx#:[id number] Oral 118 Other: Voiding Method Toilet # Voids 2 3 Weight 96.615 kg 96.615 kg - Constitutional General appearance: Present: average body habitus, cooperative, no acute distress - EENT Eyes: Present: anicteric sclerae, EOMI, PERRLA, normal appearance ENT: Present: hearing grossly normal, normal oropharynx Ears: bilateral: normal - Neck Neck: Present: normal ROM. Absent: lymphadenopathy, rigidity, thyromegaly Carotids: negative: bruit present Thyroid: bilateral: normal size, negative: enlarged, nodule - Respiratory Respiratory: bilateral: CTA, negative: rales, rhonchi, wheezing - Cardiovascular Rhythm: regular Heart sounds: normal: S1, S2 Abnormal Heart Sounds: Absent: systolic murmur, diastolic murmur - Gastrointestinal General gastrointestinal: Present: normal bowel sounds, soft. Absent: distended, organomegaly, tenderness - Genitourinary Genitourinary Comment(s): deferred - Integumentary Integumentary: Present: normal turgor. Absent: jaundiced, rash, ulcer - Neurologic Neurologic: Present: CNII-XII intact. Absent: focal deficits - Musculoskeletal Musculoskeletal: Present: gait normal, strength equal bilaterally - Psychiatric Psychiatric: Present: A&O x's 3, appropriate affect, intact judgment & insight Results CBC & Chem 7: 12/28/22 19:39 12/28/22 19:39 Labs: Abnormal Lab Results - Last 24 Hours (Table) 12/28/22 12/28/22 Range/Units 19:39 19:39 WBC 15.5 H (3.8-10.6) k/uL Neutrophils # 11.2 H (1.3-7.7) k/uL Glucose 128 H (74-99) mg/dL Thrombosis Risk Factor Assmnt - Choose All That Apply Any of the Below Risk Factors Present?: Yes Each Factor Represents 1 point: Age 41-60 years, Obesity (BMI >25) Other Risk Factors: No Thrombosis Risk Factor Assessment Total Risk Factor Score: 2 Thrombosis Risk Factor Assessment Level: Low Risk Assessment and Plan Assessment: 1. Chest heaviness, acute coronary event has been ruled out, troponins negative 3 and EKG unremarkable. 2. Hypertension 3. Nicotine dependence 4. GERD Plan: Patient is admitted to telemetry; monitor EKG and trend troponin; home medications are to resume - 2-D echocardiogram is ordered and cardiology is consulted -- cardiology's perspective and acute coronary event has been ruled out. Medications were reviewed and we will continue the same home medications. We will obtain a 2-D echo with Doppler study to assess cardiac structure and function and if this shows no significant abnormalities and she has no further symptoms she may be discharged home from our standpoint and follow-up as an outpatient for further cardiac workup.
--- NOTE | 2022-12-30 10:31 | P.DS ---
Providers Date of admission: 12/28/22 21:03 Expected date of discharge: 12/29/22 Attending physician: Simba Gandhi Consults: 12/28/22 21:03 Consult Physician Urgent Consulting Provider: [facility] Reason/Comments: chest pain Do you want consulting provider notified?: Yes, Notify in am Primary care physician: [facility] Course: 57-year-old female presenting with chief complaint of chest pain. Patient states that last night she had a brief episode of pressure-like chest pain and shortness of breath. States that today she had a repeat episode which prompted her to report to the ER. She admits to lightheadedness and diarrhea as well. No cough or other URI like symptoms. No fevers. No nausea or vomiting. No hematochezia or melena. No palpitations. No vision or hearing changes. Cardiac enzymes were negative 3 and EKG was unremarkable. White blood cell count is elevated and according to the patient this is normal for her. Chest x- ray showed chronic changes without acute pulmonary process, no significant change from prior. 1. Chest heaviness, acute coronary event has been ruled out, troponins negative 3 and EKG unremarkable. 2. Hypertension 3. Nicotine dependence 4. GERD Plan: Patient is admitted to telemetry; monitor EKG and trend troponin; home medications are to resume - 2-D echocardiogram is ordered and cardiology is consulted -- cardiology's perspective and acute coronary event has been ruled out. Medications were reviewed and we will continue the same home medications. We will obtain a 2-D echo with Doppler study to assess cardiac structure and function and if this shows no significant abnormalities and she has no further symptoms she may be discharged home from our standpoint and follow-up as an outpatient for further cardiac workup. Echocardiogram is completed and reviewed; patient is being discharged in a stable condition Patient Condition at Discharge: Fair Plan - Discharge Summary Discharge Rx Participant: Yes New Discharge Prescriptions: New Aspirin 81 mg PO DAILY tab Continue Losartan [Cozaar] 50 mg PO DAILY Escitalopram [Lexapro] 20 mg PO DAILY Cholecalciferol [Vitamin D3 (25 Mcg = 1000 Iu)] 50 mcg PO DAILY Omeprazole Magnesium [PriLOSEC OTC] 20 mg PO DAILY Semaglutide [Ozempic] 0.5 mg SQ TH Montelukast [Singulair] 10 mg PO DAILY Sulfamethox-Tmp 800-160Mg [Bactrim DS 800-160 mg] 1 tab PO DIRECTED Docusate [Colace] 100 mg PO DAILY PRN PRN Reason: Constipation Discharge Medication List Cholecalciferol [Vitamin D3 (25 Mcg = 1000 Iu)] 50 mcg PO DAILY 08/30/16 [History] Escitalopram [Lexapro] 20 mg PO DAILY 08/30/16 [History] Losartan [Cozaar] 50 mg PO DAILY 08/30/16 [History] Docusate [Colace] 100 mg PO DAILY PRN 12/28/22 [History] Montelukast [Singulair] 10 mg PO DAILY 12/28/22 [History] Omeprazole Magnesium [PriLOSEC OTC] 20 mg PO DAILY 12/28/22 [History] Semaglutide [Ozempic] 0.5 mg SQ TH 12/28/22 [History] Sulfamethox-Tmp 800-160Mg [Bactrim DS 800-160 mg] 1 tab PO DIRECTED 12/28/22 [History] Aspirin 81 mg PO DAILY tab 12/29/22 [Rx] Follow up Appointment(s)/Referral(s): Mary Fajardo MD [STAFF PHYSICIAN] - 1 Week Rolanda Huertas [Primary Care Provider] - 1-2 days Discharge Disposition: HOME SELF-CARE
== END 2022-12-29 17:28 | disposition home or self-care (01) ==
LOC: EC 19:01 → 6NMEDSUR 21:03
PROVIDERS: ADMIT Internal Medicine; ATTEND Internal Medicine
DX: R07.89 Other chest pain (principal); R06.02 Shortness of breath; R42 Dizziness and giddiness; R19.7 Diarrhea, unspecified; I10 Essential (primary) hypertension; K21.9 Gastro-esophageal reflux disease without esophagitis; F17.210 Nicotine dependence, cigarettes, uncomplicated; Z79.84 Long term (current) use of oral hypoglycemic drugs; Z79.899 Other long term (current) drug therapy; M19.90 Unspecified osteoarthritis, unspecified site; Z90.49 Acquired absence of other specified parts of digestive tract; Z98.890 Other specified postprocedural states; F41.9 Anxiety disorder, unspecified; F32.A Depression, unspecified; Z82.49 Family history of ischemic heart disease and other diseases of the circulatory system; Z80.8 Family history of malignant neoplasm of other organs or systems
CPT/HCPCS: 96360; 99285; 36415; 93005; 93306; 85379; 80053; 80061; 83735; 84484 ×2; 85025; 85610; 85730; 71046; G0378 ×2; 96361